=== PATIENT | male | born 2005 | race Caucasian/White ===

== ENCOUNTER 2025-07-23 10:18 | Emergency (ER) | payer MEDICAID, OTHER ==
[~2025-07-23] VITALS: Ht 182.9 cm; Wt 78.0 kg
[2025-07-23 11:49] VITALS: BP 121/74; TEMP 98; O2SAT 100
== END 2025-07-23 11:49 | disposition home or self-care (01) ==
LOC: ER 10:37
DX: S00.81XA Abrasion of other part of head, initial encounter (principal); R51.9 Headache, unspecified; W18.39XA Other fall on same level, initial encounter; Y93.89 Activity, other specified; Y92.89 Other specified places as the place of occurrence of the external cause; Y99.9 Unspecified external cause status
CPT/HCPCS: 70450-TC